=== PATIENT | female | born 1965 | race Two or more races ===

== ENCOUNTER 2019-10-10 10:52 | Inpatient (IN) | payer OTHER ==
[~2019-10-10] VITALS: Ht 152.4 cm; Wt 71.7 kg
[2019-10-16] MEDS ORDERED: JANUMET 50-1,01 EACH PO (12:02)
[2019-10-16] MEDS ORDERED: TRAZODONE HCL150 MG PO (12:02)
[2019-10-16] MEDS ORDERED: PERCOCET 5-3251 EACH PO (12:03)
[2019-10-28] MEDS ORDERED: OXYC1TAB9 PO (16:12)
[2019-10-28] MEDS ORDERED: HYOSCYAMINE0.125 M1 SL (16:12)
[2019-10-28] MEDS ORDERED: INTESTINEX680 M1 PO (16:13)
[2019-10-28] MEDS ORDERED: POLY119PG PO (16:13)
== END 2019-10-28 16:38 | disposition home or self-care (01) | DRG 330 ==
LOC: SURH 10-23 08:30 → O/R 10-23 08:30 → SURG 10-23 10:45 → SURH 10-23 16:36
PROVIDERS: ADMIT Surgery
PROC: 3E0F7GC Introduction of Other Therapeutic Substance into Respiratory Tract, Via Natural or Artificial Opening (ICD-10-PCS; 2019-10-23)
PROC: 0DTN4ZZ Resection of Sigmoid Colon, Percutaneous Endoscopic Approach (ICD-10-PCS; principal; 2019-10-23 11:00)
PROC: 0DJD8ZZ Inspection of Lower Intestinal Tract, Via Natural or Artificial Opening Endoscopic (ICD-10-PCS; 2019-10-23 11:00)
DX: K57.20 Diverticulitis of large intestine with perforation and abscess without bleeding (principal); K56.690 Other partial intestinal obstruction; J45.41 Moderate persistent asthma with (acute) exacerbation; E11.65 Type 2 diabetes mellitus with hyperglycemia; Z79.4 Long term (current) use of insulin

== ENCOUNTER 2022-09-22 14:00 | Emergency (ER) | payer OTHER ==
[~2022-09-22] VITALS: Ht 152.4 cm; Wt 71.2 kg
[~2022-09-22 14:00] MED LIST: HYOSCYAMINE0.125 M1 SL; INTESTINEX680 M1 PO; JANUMET 50-1,01 EACH PO; OXYC1TAB9 PO; PERCOCET 5-3251 EACH PO; POLY119PG PO; TRAZODONE HCL150 MG PO
[2022-09-22] MEDS ORDERED: AMOX1TAB5 PO (19:16)
== END 2022-09-22 21:17 | disposition home or self-care (01) ==
LOC: ER 14:00
DX: B34.9 Viral infection, unspecified (principal); Z20.822 Contact with and (suspected) exposure to COVID-19; Z88.6 Allergy status to analgesic agent; Z88.2 Allergy status to sulfonamides; J32.9 Chronic sinusitis, unspecified

== ENCOUNTER 2022-10-31 16:32 | Emergency (ER) | payer OTHER ==
[~2022-10-31] VITALS: Ht 152.4 cm; Wt 74.8 kg
[~2022-10-31 16:32] MED LIST changes: +AMOX1TAB5 PO
== END 2022-10-31 22:26 | disposition home or self-care (01) ==
LOC: ER 16:32
DX: M25.561 Pain in right knee (principal); M17.11 Unilateral primary osteoarthritis, right knee; E11.9 Type 2 diabetes mellitus without complications; Z79.84 Long term (current) use of oral hypoglycemic drugs; Z88.6 Allergy status to analgesic agent; Z88.2 Allergy status to sulfonamides; Z87.09 Personal history of other diseases of the respiratory system